=== PATIENT | female | born 1970 | race Caucasian/White ===

== ENCOUNTER 2021-02-15 08:28 | Emergency (ER) | payer OTHER, SELFPAY ==
[2021-02-15 08:42] VITALS: BP 104/71; PULSE 85; RESP 16; TEMP 36.4; O2SAT 99
--- NOTE | 2021-02-15 09:02 | ED.URI ---
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 Symptoms are mild, unrelieved with OTC preparations like Mucinex. No fever, wheezing/sneezing, pets/smokers trigger, , sore throat, earache. She had Covid disease after vaccination-no loss of taste/smell, S OB, vomiting/diarrhea, CP [she declines PCR testing] Related Data Allergies Allergy/AdvReac Type Severity Reaction Status Date / Time No Known Allergies Allergy Unknown Verified 05/05/20 07:58 Review of Systems Review of Systems: General/Constitutional: No weight loss,fever Eyes: N0: Redness,discharge Ears/Nose/Throat: No: Epistaxis,ear discharge Respiratory: Denies: Hemoptysis Gastrointestinal: No Vomiting, Bleeding-rectal Skin: No Lumps, eruption Neurologic: No Focal Weakness,Sz Hematologic: Denies: Petechiae/Purpura Psychiatric: No: Suicida ideationl All Other Systems: Reviewed and Negative PMFSH Social History Social History Smoking status: Never smoker Comments At time of signature, agree with nursing past medical, surgical, social and family history. There is no relevant family history pertinent to the presenting complaint Exam Narrative: General Appearance: Well appearing, Well nourished EYE: PERRLA, Conjunctiva clear Ears: Auditory canal normal, TM normal Nose: Rhinorrhea, Mucousal erythema Mouth/Throat: MM moist, Uvula midline, Pharyngeal erythema Neck: Supple, No adenopathy Respiratory: No respiratory distress, Breath sounds equal, Clear to auscultation Cardiovascular: RRR, No JVD Musculoskeletal: Non tender, Normal strength Skin: Warm, Dry Neurological: A&O x3, CN II-XII intact Psychiatric: Normal mood, Normal affect Course Vital Signs Vital signs: Vital Signs Temperature 97.5 F L 02/15/21 08:42 Pulse Rate 85 02/15/21 08:42 Respiratory Rate 16 02/15/21 08:42 Blood Pressure 104/71 02/15/21 08:42 Pulse Oximetry 99 02/15/21 08:42 Temperature 97.5 F L 02/15/21 08:42 Pulse Rate 85 02/15/21 08:42 Respiratory Rate 16 02/15/21 08:42 Blood Pressure 104/71 02/15/21 08:42 Pulse Oximetry 99 02/15/21 08:42 Discharge Plan Discharge Clinical Impression: Cough Patient Disposition: Home, Self-Care Condition: Stable Instructions: Acute Bronchitis (ED) Additional Instructions: Decrease Lexapro by half/every other day when taking these meds Prescriptions: New azithromycin 250 mg tablet See Rx Instructions .ROUTE .COMPLEX Qty: 6 RF: 0 codeine-guaifenesin 10-100 mg/5 mL liquid 7.5 ml PO Q6H PRN (Reason: cough) Qty: 118 RF: 0 azelastine 137 mcg (0.1 %) aerosol,spray 137 mcg NASAL Q12H Qty: 30 RF: 0 No Action escitalopram oxalate 10 mg tablet 10 mg PO DAILY Qty: 90 RF: 1 zolpidem 10 mg tablet 10 mg PO ONCE Qty: 30 RF: 3 Follow-up/Referrals: Erik,SAMEER Miles [Primary Care Provider] - Stand Alone Forms: Work/School Release IP
== END 2021-02-15 09:10 | disposition home or self-care (01) ==
PROVIDERS: Emergency Provider Emergency Medicine; PCP Physician Assistant
DX: R05 Cough (principal); Z20.822 Contact with and (suspected) exposure to COVID-19
CPT/HCPCS: 87426; 99213; C9803; G0463

== ENCOUNTER 2021-11-06 19:21 | Emergency (ER) | payer SELFPAY ==
[2021-11-06] VITALS (14 sets, daily range): BP systolic 100–139; BP diastolic 58–79; PULSE 65–85; RESP 14–18; TEMP 36.3; O2SAT 97–99
[2021-11-06] MEDS: FAMOTIDINE 20 MG/2 ML VIAL IV PUSH (20:01)
[2021-11-06] MEDS: methylPREDNISolone SOD SUCC 125 MG VIAL IV PUSH (20:01)
--- NOTE | 2021-11-06 20:40 | ED.ALLEREA ---
HPI - Allergic Reaction General Chief complaint: Allergic Reaction Stated complaint: Wasp sting, swelling Time Seen by Provider: 11/06/21 19:31 Source: RN notes reviewed History of Present Illness HPI narrative: Patient presents emergency department from home for allergic reaction. Patient states approximate hour prior to arrival she was stung in the left hand by a bee she states she notices swelling of the left hand with some erythema and swelling going up her left forearm to her elbow patient states at that time she also began to notice an area of erythema and redness over her left inner thigh she states that she had no swelling of the lips or tongue she denies any shortness of breath or cough denies any chest pain. States she did take 50 mg of Benadryl at home as well as some ibuprofen with minimal relief and came to the emergency department for further evaluation Related Data Allergies Allergy/AdvReac Type Severity Reaction Status Date / Time insect venom AdvReac Difficulty Verified 11/06/21 19:36 Swallowing Review of Systems Review of Systems: Gen.: Denies fevers or chills Eyes: Denies eye pain or visual change ENT: Denies swelling of the lips or tongue Respiratory: Denies shortness of breath or cough CV: Denies chest pain or palpitations GI: Denies abdominal pain nausea, emesis denies chance of Musculoskeletal: Denies back pain or muscle pain Neuro: Denies numbness, tingling, weakness or focal weakness Skin: See HPI Except as documented, all other systems reviewed and negative [facility] Past Medical History Medical History (Updated 11/06/21 @ 21:55 by Inocencio Zambrano DO) Insomnia Major depressive disorder Social History Social History Smoking status: Never smoker Exam Narrative: APPEARANCE: No acute distress, nontoxic, resting in bed EYES: EOMI HEENT: Normocephalic, atraumatic, OMM no swelling of the lips or tongue airway patent tolerating own secretions voice normal RESPIRATORY: No respiratory distress Clear to auscultation bilaterally with no rhonchi wheezing or rales. CARDIOVASCULAR: Regular rate and rhythm without murmurs rubs or gallops. ABDOMINAL: Soft, nontender, nondistended, no rebound or guarding MUSCULOSKELETAl: Moves all extremities. No clubbing, cyanosis or edema. The left hand has swelling erythema over the thenar eminence of into the thumb down to the wrist some erythema into the forearm some urticaria present the left inner superior thigh has a oval-shaped area of raised erythema consistent with urticaria is localized does not extend throughout the leg there is no other areas of rash seen throughout the body NEURO: Awake and alert. Following commands, speech normal, no focal deficits SKIN:: Warm, dry. No rashes lesions or abrasions PSYCHIATRIC: Normal affect/mood, Course Course Emergency Course: Patient swelling is improved with medication Patient continues to be monitored in the ED has no swelling of the lips or tongue Discussed with patient results of workup and diagnosis. Discussed need for follow-up with primary care, proper use of medication, and reasons to return to the emergency department. Patient understands and agrees to current treatment plan Vital Signs Vital signs: Vital Signs Temperature 97.3 F L 11/06/21 19:34 Pulse Rate 85 11/06/21 19:34 Respiratory Rate 16 11/06/21 19:34 Blood Pressure 139/78 11/06/21 19:34 Pulse Oximetry 98 11/06/21 19:34 Oxygen Delivery Room Air 11/06/21 19:34 Temperature 97.3 F L 11/06/21 19:34 Pulse Rate 66 11/06/21 21:16 Respiratory Rate 15 11/06/21 21:16 Blood Pressure 115/66 11/06/21 21:16 Pulse Oximetry 99 11/06/21 21:16 Oxygen Delivery Room Air 11/06/21 19:34 Discharge Plan Discharge Clinical Impression: Accidental wasp sting, Allergic reaction Patient Disposition: Home, Self-Care Condition: Stable Instructions:
== END 2021-11-06 22:13 | disposition home or self-care (01) ==
PROVIDERS: Emergency Provider Emergency Medicine; PCP Physician Assistant
DX: T63.461A Toxic effect of venom of wasps, accidental (unintentional), initial encounter (principal); F32.9 Major depressive disorder, single episode, unspecified
CPT/HCPCS: 96374; 96375; 99284; J2930

== ENCOUNTER 2022-10-25 15:30 | Outpatient (CLI) | payer BC, SELFPAY ==
[2022-10-25 15:54] LABS: Basophils Percent Auto 0.8 % (0.2-1.2); Eosinophils Absolute Auto 0.1 K/mm3 (0-0.3); Eosinophils Percent Auto 2.7 % (0-4.4); Hematocrit 41.8 % (37.0-47.0); Hemoglobin 14.7 g/dL (12.0-15.0); Immature Granulocyte Absolute 0.01 K/mm3 (0.00-0.031); Immature Granulocyte Percent A 0.2 % (0-0.5); Immature Platelet Fraction Pct 5.8 % (0.9-11.2); Lymphocytes Absolute Auto 1.51 K/mm3 (0.9-3.2); Lymphocytes Percent Auto 31.5 % (18.3-44.2); Mean Corpuscular HGB Conc 35.2 g/dl (32-36); Mean Corpuscular Hemoglobin 32.1 pg (26-34); Mean Corpuscular Volume 91.3 fl (80-100); Mean Platelet Volume 10.8 fl (7.4-10.4); Monocytes Absolute Auto 0.5 K/mm3 (0.1-0.6); Monocytes Percent Auto 9.8 % (2.6-8.5); Neutrophils Absolute Auto 2.6 K/mm3 (1.3-6.7); Platelet Count Result 55 k/mm3 (150-375); Red Blood Count 4.58 M/mm3 (4.2-5.4); Red Cell Distribution Width 11.9 % (11.5-14.5); White Blood Count 4.8 K/mm3 (4.5-10.0)
[2022-10-25 21:06] LABS: Iron 106 ug/dL (37-170)
[2022-10-25 21:14] LABS: Alanine Aminotransferase 29 U/L (6-35); Albumin Level 4.4 g/dL (3.5-5.1); Alkaline Phosphatase 76 U/L (38-126); Anion Gap 4 mmol/L (8-16); Aspartate Amino Transferase 31 U/L (14-36); Bilirubin,Total 0.5 mg/dL (0.2-1.3); Blood Urea Nitrogen 19 mg/dL (7-17); Calcium 9.1 mg/dL (8.4-10.2); Carbon Dioxide 33 mmol/L (22-30); Chloride 100 mmol/L (98-107); Estimated Glomerular Filt Rate > 60; Glucose 99 mg/dL (65-110); Lactate Dehydrogenase 190 U/L (120-246); Potassium 4.1 mmol/L (3.4-5.0); Sodium 137 mmol/L (137-145)
[2022-10-25 21:15] LABS: Percent Iron Saturation 30 % (20-50)
[2022-10-25 22:22] LABS: Folic Acid 5.7 ng/mL (2.76->20)
[2022-10-28 01:31] LABS: Methylmalonic Acid 86 nmol/L (87-318)
[2022-10-30 09:00] LABS: Reference Lab Test Result Negative
== END 2022-10-25 15:31 | disposition home or self-care (01) ==
LOC: ANHLAB 15:32
PROVIDERS: PCP Nurse Practitioner; Visit Provider Internal Medicine Hematology & Oncology
DX: D69.59 Other secondary thrombocytopenia (principal); D64.9 Anemia, unspecified
CPT/HCPCS: 36415; 80053; 82607; 82728; 82746; 83540; 83550; 83615; 83921; 85025; 85055; 86023

== ENCOUNTER 2022-10-27 00:28 | Day surgery (SDC) | payer BC, SELFPAY ==
[2022-10-27 07:40] VITALS: BP 145/84; PULSE 72; RESP 18; TEMP 36.4; O2SAT 100; BMI 33.7
[2022-10-27 07:48] VITALS: BP 134/88; PULSE 64; RESP 20; TEMP 36.6; O2SAT 100; BMI 30.5
[2022-10-27] MEDS: LACTATED RINGERS 1,000 ML 150 ML IV CONT (07:57)
--- NOTE | 2022-10-27 08:16 | PM.HPGS ---
History of Present Illness History of Present Illness Consent: Risks, benefits, and alternatives have been discussed and questions answered. Patient agrees to proceed with procedure. Chief complaint: neoplasm screening Narrative: Zeinab Mcwilliams is a 51 year old female here for screening colonoscopy, had one about 15 years ago Review of Systems Constitutional: Constitutional: Denies headache(s) and Denies weakness Eyes: Eyes: Denies blurry vision ENT: Reports Normal hearing present, Denies headache(s) and Denies neck pain Cardiovascular: Cardiovascular: Denies chest pain and Denies dyspnea Respiratory: Respiratory: Denies dyspnea Gastrointestinal: Gastrointestinal: Reports no additional gastrointestinal complaints Genitourinary: Genitourinary: Denies dysuria Musculoskeletal: Musculoskeletal: Denies neck pain Integumentary/Breasts: Skin/Breast: Denies dry skin Neurologic: Reports Normal hearing present, Denies headache(s) and Denies weakness Psychiatric: Psychiatric: Denies anxiety Endocrine: Endocrine: Denies change in body appearance Hematologic/Lymphatic: Hematologic/Lymphatic: Denies easy bleeding Allergic/Immunologic: Allergic/Immunologic: Denies urticaria PMFSH Past Medical History Medical History Insomnia Major depressive disorder Social History Social History (Updated 06/15/22 @ 07:07 by FABRIZIO Sheldon) Smoking status: Never smoker Alcohol intake: current Drinks per week: 1 Substance use type: does not use Lack of Transportation: No Lack of Food: Never True Current Housing: I Have Housing Concerned About Future Housing: No Difficulty Paying Gas/Electric Bills: No Difficulty Paying for Meds: No Education: High School Diploma/GED Difficulty w/ Childcare or Family Care: No Living arrangements: with family Spiritual care concerns: No Meds Home Medications and Allergies Home Medications Medication Instructions Recorded Confirmed Type epinephrine 0.3 mg/0.3 mL 0.3 mg (0.3 mL) IM ONCE PRN 11/06/21 10/27/22 Rx injection, auto-injector (EpiPen anaphylaxis #2 ea 2-Gaurav) Allergies Allergy/AdvReac Type Severity Reaction Status Date / Time insect venom AdvReac Difficulty Verified 10/27/22 07:46 Swallowing Vital Signs Vital Signs - 24 hr 10/27/22 07:40 10/27/22 07:48 Temperature 97.5 F L 97.9 F Pulse Rate 72 64 Respiratory Rate 18 20 Blood Pressure 145/84 H 134/88 Pulse Oximetry 100 100 Oxygen Delivery Room Air Room Air Exam Const: General: comfortable and no acute distress HENMT: Face/Nose/Sinus: Normal nares present Eyes: General: appearance normal, both eyes and all related structures Neck: Neck: no JVD Resp: Auscultation: clear to auscultation bilaterally Cardio: Rate: regular rate Rhythm: regular rhythm GI: Inspection: non-distended GI Palp: Yes Soft to palpation Skin: General skin exam: normal color Neuro: General: gait normal Speech: normal speech Extrem: General: normal to inspection Psych: Mental Status: mental status grossly normal Assessment and Plan Assessment and plan (1) Screening for colon cancer: Code(s): Z12.11 - Encounter for screening for malignant neoplasm of colon Status: Acute Assessment and Plan: colonoscopy
--- NOTE | 2022-10-27 08:19 | P.PNAN_ITS ---
Anes - Initial Pre Proc Eval Procedure: Operation Date: 10/27/22 08:30 Proposed Procedures p Screening Colonoscopy - Cruz James MD Date/Time: 10/27/22 08:19 Surgeon: Cruz James MD Pre Op Diagnosis: neoplasm screening Patient Data Age: 51 Gender: F Height: 1.65 m Weight: 83.2 kg Last Vital Signs Temp 97.9 F 10/27/22 07:48 Pulse 64 10/27/22 07:48 Resp 20 10/27/22 07:48 BP 134/88 10/27/22 07:48 Pulse Ox 100 10/27/22 07:48 O2 Del Method Room Air 10/27/22 07:48 Allergies Allergy/AdvReac Type Severity Reaction Status Date / Time insect venom AdvReac Difficulty Verified 10/27/22 07:46 Swallowing Home Medications Medication Instructions Recorded Confirmed Type epinephrine 0.3 mg/0.3 mL 0.3 mg (0.3 mL) IM ONCE PRN 11/06/21 10/27/22 Rx injection, auto-injector (EpiPen anaphylaxis #2 ea 2-Gaurav) Patient hx anesthesia problems: none Family hx anesthesia problems: none Results Review: All pre-operative results and documents have been reviewed as part of the pre- operative evaluation. [facility] Past Medical History Medical History Insomnia Major depressive disorder Social History Social History (Updated 06/15/22 @ 07:07 by FABRIZIO Sheldon) Smoking status: Never smoker Alcohol intake: current Drinks per week: 1 Substance use type: does not use Lack of Transportation: No Lack of Food: Never True Current Housing: I Have Housing Concerned About Future Housing: No Difficulty Paying Gas/Electric Bills: No Difficulty Paying for Meds: No Education: High School Diploma/GED Difficulty w/ Childcare or Family Care: No Living arrangements: with family Spiritual care concerns: No Anes - Eval Final PreProcedure Day of Procedure 10/27/22 08:19 Patient weight: normal Heart: regular rate and rhythm Lungs: clear to auscultation Airway: Mallampati scale class II Neurological: alert and oriented Last oral intake: >/= 8 hours ASA classification: II Emergent: no Anesthetic plan: proceed Anesthesia type and monitoring: general GIVS and standard monitoring Results Review: All pre-operative results and documents have been reviewed as part of the pre- operative evaluation. Informed Consent: The patient's anesthetic plan and its attendant risks and benefits were discussed with the patient/family/POA. Questions were solicited and answers provided to the satisfaction of the patient/family/POA.
[2022-10-27 08:40] VITALS: BP 118/67; PULSE 75; RESP 21; O2SAT 98
[2022-10-27 08:50] VITALS: BP 103/71; PULSE 66; RESP 20; O2SAT 100
[2022-10-27 09:01] VITALS: BP 111/80; PULSE 70; RESP 20; O2SAT 100
== END 2022-10-27 09:06 | disposition home or self-care (01) ==
PROVIDERS: PCP Nurse Practitioner; Visit Provider Internal Medicine Gastroenterology
PROC: 0DJD8ZZ Inspection of Lower Intestinal Tract, Via Natural or Artificial Opening Endoscopic (ICD-10-PCS; CPT 45378; principal; 2022-10-27 08:30)
DX: Z12.11 Encounter for screening for malignant neoplasm of colon (principal); K64.8 Other hemorrhoids
CPT/HCPCS: 45378; J2704; J7120

== ENCOUNTER 2022-11-02 09:41 | Outpatient (CLI) | payer BC, SELFPAY ==
--- NOTE | ~2022-11-02 | US_ITS ---
Abdominal Sonogram: Real-time sonographic imaging of the abdomen was performed. Clinical History: Secondary thrombocytopenia Findings: The liver appears normal with no evidence of mass lesion or bile duct dilatation. Main por riley vein demonstrates normal direction of flow. The spleen is normal in size without evidence of foca l lesion. The gallbladder is well distended, and appears normal with no evidence of gallstone or wal l thickening. The common bile duct measures 4 mm. The visualized pancreas, aorta, and IVC are unrema rkable. The right kidney measures 9.6 cm in length and the left kidney measures 10.3 cm. There is n o hydronephrosis or renal calculus. Impression: Unremarkable abdominal ultrasound. Reviewed, dictated and finalized at location . Impression: Unremarkable abdominal ultrasound.
== END 2022-11-02 09:42 | disposition home or self-care (01) ==
PROVIDERS: PCP Nurse Practitioner; Visit Provider Internal Medicine Hematology & Oncology
DX: D69.59 Other secondary thrombocytopenia (principal)
CPT/HCPCS: 76700

== ENCOUNTER 2023-01-17 00:45 | Day surgery (SDC) | payer BC, SELFPAY ==
[2023-01-16 14:55] VITALS: BMI 30.3
--- NOTE | ~2023-01-17 | BM_ITS ---
EXAMINATION: CCL bone marrow asp w bx diag DATE: 01/17/2023 INDICATION: Thrombocytopenia. TECHNIQUE: A time-out was performed to verify the patient's name, date of , and procedure to b e performed. The procedure including the risks, benefits, and alternatives was discussed with the pat ient. Risks discussed included bleeding and infection. The patient understood the risks and agreed to proceed. The skin overlying the left ilium was prepped and draped in usual sterile fashion. Anesth etic was administered with 1% lidocaine subcutaneously. Moderate sedation was achieved with 1 mg Vers ed IV and 100 mcg fentanyl IV. An 11 gauge needle was inserted into the ilium with fluoroscopic guid ance. Bone marrow was aspirated. An 8 gauge needle was then inserted into the ilium with fluoroscopic guidance. A core bone marrow biopsy was obtained. There were no immediate complications. Fluoroscopy exposure time was 0.0 minutes. The total number of images was 11. FINDINGS: Real-time fluoroscopy demonstrates a marker overlying the left posterior superior iliac spi ne. IMPRESSION: 1. Fluoro-guided bone marrow aspiration. 2. Fluoro-guided bone marrow core biopsy. Reviewed, dictated and finalized at location A.
[2023-01-17 08:00] VITALS: BP 114/78; PULSE 71; RESP 14; TEMP 36.5; O2SAT 100; BMI 30.3
[2023-01-17 08:26] LABS: Basophils Percent Auto 0.5 % (0.2-1.2); Eosinophils Absolute Auto 0.1 K/mm3 (0-0.3); Eosinophils Percent Auto 1.9 % (0-4.4); Hematocrit 41.7 % (37.0-47.0); Hemoglobin 14.5 g/dL (12.0-15.0); Immature Granulocyte Absolute 0.01 K/mm3 (0.00-0.031); Immature Granulocyte Percent A 0.3 % (0-0.5); Immature Platelet Fraction Pct 7.7 % (0.9-11.2); Lymphocytes Percent Auto 37.6 % (18.3-44.2); Mean Corpuscular HGB Conc 34.8 g/dl (32-36); Mean Corpuscular Hemoglobin 31.5 pg (26-34); Mean Corpuscular Volume 90.7 fl (80-100); Mean Platelet Volume 11.7 fl (7.4-10.4); Monocytes Absolute Auto 0.4 K/mm3 (0.1-0.6); Monocytes Percent Auto 9.4 % (2.6-8.5); Neutrophils Absolute Auto 1.9 K/mm3 (1.3-6.7); Neutrophils Percent Auto 50.3 % (45.5-73.1); Platelet Count Result 43 k/mm3 (150-375); Red Cell Distribution Width 11.9 % (11.5-14.5); White Blood Count 3.7 K/mm3 (4.5-10.0)
[2023-01-17 08:34] LABS: INR 0.9
--- NOTE | 2023-01-17 08:53 | WPDMODSED ---
Moderate Sedation Note-Pt Data Patient Data Diagnosis: Thrombocytopenia. Present Complaint: Thrombocytopenia. Procedure to be performed/Plan: Fluoro-guided bone marrow biopsy of ilium. Allergies Allergy/AdvReac Type Severity Reaction Status Date / Time insect venom AdvReac Difficulty Verified 01/17/23 07:48 Swallowing Home Medications Medication Instructions Recorded Confirmed Type epinephrine 0.3 mg/0.3 mL 0.3 mg (0.3 mL) IM ONCE PRN 11/06/21 01/17/23 Rx injection, auto-injector (EpiPen anaphylaxis #2 ea 2-Gaurav) Sedation/Anesthesia: No previous sedation/anesthesia problems (including family history). [facility] Past Medical History Medical History Insomnia Major depressive disorder Social History Social History (Updated 12/20/22 @ 08:32 by Aurea Gonsalez MA) Smoking status: Never smoker Second hand tobacco smoke exposure: No Alcohol intake: current Drinks per week: 1 Substance use: never Substance use type: does not use Lack of Transportation: No Lack of Food: Never True Current Housing: I Have Housing Concerned About Future Housing: No Difficulty Paying Gas/Electric Bills: No Difficulty Paying for Meds: No Currently Unemployed: No Education: High School Diploma/GED Difficulty w/ Childcare or Family Care: No Living arrangements: with family Spiritual care concerns: No Mod Sed Physical Exam Physical Exam Pre Procedural Exam: Normal: Appearance, Lungs, Heart Rate, Heart Rhythm and Abdomen Hours since solid foods: 12 Hours since liquid intake: 12 Mallampati Classification: class II Internal Medicine - PN: Obj Da Vital Signs Vital Signs: Vital Signs - 24 hr 01/17/23 08:00 Temperature 36.5 C Pulse Rate 71 Respiratory Rate 14 Blood Pressure 114/78 Pulse Oximetry 100 Oxygen Delivery Room Air Labs 01/17/23 07:58 Labs: Laboratory Results - last 24 hr 01/17/23 07:58 WBC 3.7 L RBC 4.60 Hgb 14.5 Hct 41.7 MCV 90.7 MCH 31.5 MCHC 34.8 RDW 11.9 Plt Count 43 L MPV 11.7 H Immature Gran % (Auto) 0.3 Neut % (Auto) 50.3 Lymph % (Auto) 37.6 [place] % (Auto) 9.4 H Eos % (Auto) 1.9 Baso % (Auto) 0.5 Lymph # (Auto) 1.40 [place] # (Auto) 0.4 Eos # (Auto) 0.1 Baso # (Auto) 0.0 Abs Immat Gran (auto) 0.01 Absolute Neuts (auto) 1.9 Absolute Nucleated RBC 0.0 Nucleated RBC % 0.0 % Immature Plt Fraction 7.7 PT 13.0 INR 0.9 ASA Classification/Sedation ASA Classification/Sedation ASA Class: II Emergent: No Risks: Risks, benefits and alternatives explained and patient/family accepted plan for sedation. Patient re-evaluated immediately prior to sedation.
[2023-01-17 09:37] VITALS: BP 103/69; PULSE 63; RESP 14; O2SAT 100
[2023-01-17 09:55] VITALS: BP 100/66; PULSE 57; RESP 13; O2SAT 100
[2023-01-17 10:10] VITALS: BP 97/63; PULSE 64; RESP 14; O2SAT 100
[2023-01-17 10:30] VITALS: BP 108/81; PULSE 60; RESP 16; O2SAT 100
== END 2023-01-17 10:40 | disposition home or self-care (01) ==
PROVIDERS: PCP Nurse Practitioner; Referring Provider Internal Medicine Hematology & Oncology; Visit Provider Radiology Diagnostic Radiology
DX: D69.6 Thrombocytopenia, unspecified (principal)
CPT/HCPCS: 36415; 38222; 85025; 85055; 85610; 88184; 88185; 88305; 88311; 88313; J1642; J2250; J3010; J7040

== ENCOUNTER 2024-04-11 10:38 | Emergency (ER) | payer BC, SELFPAY ==
[2024-04-11 10:50] VITALS: BP 108/83; PULSE 90; RESP 16; TEMP 36.7; O2SAT 99
--- NOTE | 2024-04-11 11:22 | ED_ITS ---
HPI - Skin/Abscess/Foreign Bdy General Chief complaint: Skin/Abscess/Foreign Body Stated complaint: rash on back Time Seen by Provider: 04/11/24 11:22 Source: patient Mode of arrival: ambulatory Limitations: no limitations History of Present Illness HPI narrative: 53 yo F presents with rash to back. States she had a little itch this morning. Reached to her back and felt a rash. NO pain. No longer itching. Concerned she may have shingles. All systems reviewed and negative except as noted above. Related Data Allergies Allergy/AdvReac Type Severity Reaction Status Date / Time insect venom AdvReac Difficulty Verified 04/11/24 10:59 Swallowing Review of Systems Review of Systems: CONSTITUTIONAL: Denies fever, chills, or sweats. EYES: Denies visual changes, redness, or discharge. ENT: Denies rhinorrhea, congestion, sore throat, or otalgia. CARDIOVASCULAR: Denies chest pain, palpitations, or edema. RESPIRATORY: Denies cough or dyspnea. GASTROINTESTINAL: Denies abdominal pain, nausea, vomiting, or diarrhea. GENITOURINARY: Denies dysuria or hematuria. SKIN: Reports rash with itching to back. MUSCULOSKELETAL: Denies back pain, joint pain, or myalgia. NEUROLOGIC: Denies headache, numbness, or weakness. PSYCHIATRIC: Denies anxiety or depression. All other systems reviewed are negative, except as documented in HPI. [facility] Past Medical History Medical History Insomnia Major depressive disorder Social History Social History Smoking status: Never smoker Second hand tobacco smoke exposure: No Alcohol intake: current Drinks per week: 1 Substance use: never Substance use type: does not use Lack of Transportation: No Lack of Food: Never True Current Housing: I Have Housing Concerned About Future Housing: No Difficulty Paying Gas/Electric Bills: No Difficulty Paying for Meds: No Currently Unemployed: No Education: High School Diploma/GED Difficulty w/ Childcare or Family Care: No Living arrangements: with family Spiritual care concerns: No Comments At time of signature, agree with nursing past medical, surgical, social and family history. There is no relevant family history pertinent to the presenting complaint. Exam Narrative: GENERAL: This is a well-nourished, well-developed patient, in no apparent distress. HEAD: normocephalic, atraumatic. EYES: PERRL. Sclera clear/white. Vision is grossly intact. EARS: External ears normal NOSE: External nose normal NECK: Neck supple, non-tender without lymphadenopathy, masses or thyromegaly. CARDIOVASCULAR: Regular rate and rhythm without murmurs, gallops, or rubs. RESPIRATORY: Clear to auscultation. Breath sounds equal bilaterally. No wheezes, rales, or rhonchi. SKIN: warm, Dry, intact, good texture and turgor. scaly papules to center, mid back with very mild erythema but mostly same pigmentation as pt's skin. No vesicles. no tenderness on palpation. NEURO: awake, alert, and oriented to person, place and time. There were no obvious focal neurologic abnormalities. EXTREMITIES: No joint tenderness, effusion, or edema noted. Course Course Level of Care: Express Care Visit Vital Signs Vital signs: Vital Signs Temperature 36.7 C 04/11/24 10:50 Pulse Rate 90 04/11/24 10:50 Respiratory Rate 16 04/11/24 10:50 Blood Pressure 108/83 04/11/24 10:50 Pulse Oximetry 99 04/11/24 10:50 Oxygen Delivery Room Air 04/11/24 10:50 Temperature 36.7 C 04/11/24 10:50 Pulse Rate 90 04/11/24 10:50 Respiratory Rate 16 04/11/24 10:50 Blood Pressure 108/83 04/11/24 10:50 Pulse Oximetry 99 04/11/24 10:50 Oxygen Delivery Room Air 04/11/24 10:50 Reviewed MDM - Skin/Abscess/Foreign Bdy MDM Narrative Medical decision making narrative: patient's rash is most likely eczema. She does not have any vesicles or pain which is seen with shingles. Patient is aware of diagnosis, understands and agrees to treatment plan. Anticipatory guidance given. Patient agrees to follow-up as directed and is aware of reasons to seek care at the emergency department. Portions of this record may have been created with voice recognition software Discharge Plan Discharge Clinical Impression: Eczema Qualifiers: Eczema type: unspecified Qualified Code(s): L30.9 - Dermatitis, unspecified Patient Disposition: Home, Self-Care Condition: Stable Instructions: Eczema (ED) Additional Instructions: Use triamcinolone (steroid cream) as prescribed. Follow-up with your primary care physician if not improving. Prescriptions: New triamcinolone acetonide 0.1 % cream 1 applic topical BID PRN (Reason: eczema and itching) Qty: 15 0RF No Action epinephrine [EpiPen 2-Gaurav] 0.3 mg/0.3 mL auto-injector 0.3 mg IM ONCE PRN (Reason: anaphylaxis) Qty: 2 0RF Rx Instructions: as a single dose; may repeat once escitalopram oxalate 10 mg tablet 10 mg PO DAILY Qty: 90 1RF zolpidem 10 mg tablet 10 mg PO QHS PRN (Reason: sleep) Qty: 30 0RF Follow-up/Referrals: Raman Basilio APRN [Primary Care Provider] - Time of Disposition: 11:28
== END 2024-04-11 11:30 | disposition home or self-care (01) ==
PROVIDERS: Emergency Provider Nurse Practitioner Family; PCP Nurse Practitioner
DX: L30.9 Dermatitis, unspecified (principal)
CPT/HCPCS: 99213; G0463